=== PATIENT | male | born 1995 | race Caucasian/White ===

== ENCOUNTER 2020-01-15 23:56 | Emergency (ER) | payer OTHER, MEDICAID ==
[~2020-01-15] VITALS: Ht 190.5 cm; Wt 72.6 kg
[2020-01-16] MEDS ORDERED: AMOXICILLIN 50500 M1 PO (01:56)
[2020-01-16] MEDS ORDERED: LORCET 5-325 M1 EACH PO (01:56)
[2020-01-16 03:18] VITALS: BP 106/86
== END 2020-01-16 03:19 | disposition home or self-care (01) ==
LOC: M.ERS 23:56
DX: K02.9 Dental caries, unspecified (principal); F17.210 Nicotine dependence, cigarettes, uncomplicated